=== PATIENT | female | born 1940 | race Caucasian/White ===

== ENCOUNTER → 2018-06-16 | Outpatient (CLI) | payer MEDICARE | LOC: M LRY 14:08 | DX: M19.011 Primary osteoarthritis, right shoulder (principal); M25.711 Osteophyte, right shoulder; M25.511 Pain in right shoulder | CPT/HCPCS: 73030; G0463 ==

== ENCOUNTER → 2019-06-28 | Outpatient (REF) | payer MEDICARE ==
[~2019-06-28] MED LIST: /ALEN70TA; ACET65TA; CALC500T49; COUM1TAB; COUM1TAB18; LISI10TA4; MEGA VITAMIN; PERC5TAB8; PERC7.5T8; PRAV80TA; aleve; coq10; glucosamine; metroprolol
== END ==
LOC: M LAB REF 17:22
PROVIDERS: ATTEND Internal Medicine Endocrinology, Diabetes & Metabolism
DX: E04.2 Nontoxic multinodular goiter (principal)

== ENCOUNTER → 2020-05-12 | Outpatient (CLI) | payer MEDICARE ==
[~2020-05-12] MED LIST changes: +ACET1TAB55 PO; +AROM25TA PO; +ASPI81TA85 PO; +CALC600T60 PO; +COQ-100C5 PO; +FISH1000 PO; +GLUCCAP4 PO; +LISI-538 PO; +METO50TA7 PO; +PRAV40TA2 PO
[2020-05-12 10:43] LABS: HEMATOCRIT 47.5 % (36.0-47.0); HEMOGLOBIN 15.4 g/dl (12.0-15.5); MEAN CORPUSCULAR HEMOGLOBIN 29.8 pg (27.0-33.0); MEAN CORPUSCULAR HGB CONC 32.4 g/dl (32.0-36.5); MEAN CORPUSCULAR VOLUME 91.9 fl (80.0-96.0); PLATELET COUNT, AUTOMATED 227 10^3/uL (150-450); RED BLOOD COUNT 5.17 10^6/uL (4.00-5.40)
[2020-05-12 11:03] LABS: INR 1.1; PROTHROMBIN TIME 13.9 SECONDS (11.8-14.0)
[2020-05-12 11:06] LABS: ERYTHROCYTE SEDIMENTATION RATE 7 mm/hr (0-30)
[2020-05-12 11:11] LABS: ALBUMIN 3.9 GM/DL (3.2-5.2); BILIRUBIN,TOTAL 0.9 MG/DL (0.2-1.0); CALCIUM LEVEL 9.2 MG/DL (8.8-10.2); CREATININE FOR GFR 1.08 MG/DL (0.55-1.30); POTASSIUM SERUM 4.4 MEQ/L (3.5-5.1); TOTAL PROTEIN 7.3 GM/DL (6.4-8.2)
--- NOTE | 2020-05-12 11:30 | REP ---
REASON: Preoperative evaluation. COMPARISON: 05/03/2010, which is the latest prior. There is mild cardiomegaly. There is a hiatal hernia. There is no change in the lung amezquita. No acute patchy parenchymal opacities or pleural effusions have developed. There is no significant change in appearance of the osseous structures. IMPRESSION: No significant change from the prior exam. There is no evidence of acute cardiopulmonary disease. Electronically Signed by Rio Burks DO 05/12/2020 03:04 P
--- NOTE | 2020-05-12 16:12 | ECGEPIP ---
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
== END ==
LOC: M LAB 08:45
PROVIDERS: ATTEND Orthopaedic Surgery
DX: Z01.818 Encounter for other preprocedural examination (principal); M17.11 Unilateral primary osteoarthritis, right knee; R00.1 Bradycardia, unspecified

== ENCOUNTER → 2020-05-21 | Outpatient (CLI) | payer MEDICARE ==
[~2020-05-21] MED LIST changes: +PERC5TAB12 PO
== END ==
LOC: M LABSMTC 10:33
PROVIDERS: ATTEND Anesthesiology
DX: Z01.818 Encounter for other preprocedural examination (principal); Z11.59 Encounter for screening for other viral diseases

== ENCOUNTER 2020-05-24 06:48 | Inpatient (IN) | payer MEDICARE ==
--- NOTE | 2020-05-22 18:27 | HPE ---
DATE OF ANTICIPATED ADMISSION: 05/24/2020 ATTENDING PHYSICIAN: Dr. Kimberly Damico CHIEF COMPLAINT: Right knee pain and stiffness. HISTORY: This is a pleasant 79-year-old female patient with progressively worsening right knee pain and stiffness that has failed to improve with conservative management. She has elected for surgical intervention for her continued symptoms. She has consented for a right total knee arthroplasty by Dr. Damico. ALLERGIES: MORPHINE. CURRENT MEDICATIONS: - aspirin 81 mg one by mouth daily - calcium 600 mg - vitamin D3 400 mg one by mouth twice a day - CoQ-10 200 mg one by mouth daily - exemestane 25 mg one by mouth daily - fish oil 500 mg one by mouth daily - glucosamine chondroitin one by mouth daily - lisinopril 20 mg one by mouth daily - metoprolol 50 mg one by mouth daily - multivitamin one by mouth daily - pravastatin sodium 40 mg one by mouth daily - Tylenol Arthritis 650 mg one by mouth daily PAST MEDICAL HISTORY: Hypertension, cardiovascular disease, hyperlipidemia, left breast cancer, osteopenia. PAST SURGICAL HISTORY: Knee arthroscopy, left breast mastectomy, left knee arthroscopy, left knee total knee replacement, bilateral cataract removal, thyroid biopsy. FAMILY HISTORY: Noncontributory. SOCIAL HISTORY: The patient does not smoke or use tobacco products. REVIEW OF SYSTEMS: Denies fever, chills, chest pain, shortness breath, nausea, vomiting, diarrhea. Denies any recent upper respiratory or urinary tract infection symptoms. Reports pain with weightbearing activities in the right knee. PHYSICAL EXAM: Vital signs: Height 5 feet 1/2 inch, weight 168.2, temperature 97.5, blood pressure 110/60, pulse 63, respirations 15. She is normocephalic, atraumatic. Neck is supple and nontender with no lymphadenopathy or jugular venous distention (JVD). S1, S2 auscultated with no murmurs, rubs or gallops. Lungs: Clear to auscultation bilaterally. Abdomen: Soft, nontender. Right lower extremity: Well perfused with intact range of motion. There are no breaks in the overlying skin. LABORATORY: White blood count 6, red blood count 5.17, hemoglobin 15.4, hematocrit 47.5, ESR 7, PT 13.9, INR 1.1, BUN 18, creatinine 1.08. EKG: Sinus bradycardia. Chest x-ray: No significant change or acute cardiopulmonary processes. Medical optimization by Dr. Taylor available for review today on chart. IMPRESSION: Symptomatic right knee degenerative changes. PLAN: Consented for a right total knee arthroplasty with Dr. Damico.
[~2020-05-24] VITALS: Ht 157.5 cm; Wt 77.1 kg
[2020-05-24] VITALS (7 sets, daily range): BP systolic 119–138; BP diastolic 65–78
[~2020-05-24 06:48] MED LIST changes: -ASPI81TA85 PO; +ASPI81TA86 PO; +LIDOCAINE 1% MDV 20ML VIAL SQ PRN; -LISI-538 PO; +LISI20TA33 PO; +MIDAZOLAM INJ 2MG/2ML VIAL (J2250 PER 1MG) IV SCH; -PERC5TAB12 PO; +fentaNYL 100 MCG/2 ML INJECTION (J3010) IV SCH
[2020-05-24] MEDS ORDERED: ceFAZolin SOD 2 GM in IV 1 EA IV ONE (07:00)
[2020-05-24] MEDS ORDERED: ACETAMINOPHEN 500 MG TAB PO ONE (07:00)
[2020-05-24] MEDS ORDERED: LR 1,000 ML IV ONE (07:00)
[2020-05-24] MEDS ORDERED: fentaNYL 100 MCG/2 ML INJECTION (J3010) As Ordered ONE ×2 (08:20→09:57)
[2020-05-24] MEDS ORDERED: MIDAZOLAM INJ 2MG/2ML VIAL (J2250 PER 1MG) As Ordered ONE ×2 (08:20→09:57)
[2020-05-24] MEDS ORDERED: TRANEXAMIC ACID 100 MG/ML 10ML VIAL As Ordered ONE ×2 (08:55→09:40)
[2020-05-24] MEDS ORDERED: BUPIVACAINE HCL 0.25% 10ML VIAL As Ordered ONE (08:55)
[2020-05-24] MEDS ORDERED: EPINEPHrine INJ 1 MG/ML 1ML AMP As Ordered ONE ×2 (08:56→09:40)
[2020-05-24] MEDS ORDERED: ceFAZolin 1GM VIAL (J0690 PER 500MG) As Ordered ONE (08:56)
[2020-05-24] MEDS ORDERED: BUPIVACAINE LIPOSOME/PF 1.3% 20ML VIAL (13.3MG/ML)(EXPAREL)(C9290 PER1MG) As Ordered ONE (08:56)
[2020-05-24] MEDS ORDERED: LIDOCAINE 2% 100MG/5ML SDV (FOR ANES.) As Ordered ONE (09:57)
[2020-05-24] MEDS ORDERED: ePHEDrine SULFATE 25 MG/5 ML(5MG/ML) SYRINGE As Ordered ONE (09:57)
[2020-05-24] MEDS ORDERED: BUPIVACAINE/DEXTROSE 0.75% 2 ML AMP As Ordered ONE (09:57)
[2020-05-24] MEDS ORDERED: propofoL 200 MG/20 ML VIAL As Ordered ONE (09:57)
[2020-05-24] MEDS ORDERED: LIDOCAINE 1% MDV 20ML VIAL ONE (11:10)
[2020-05-24] MEDS ORDERED: ROPIvacaine 0.5% 30ML INJECTION (J2795 PER 1MG) ONE (11:10)
[2020-05-24] MEDS ORDERED: dexameTHASONE 10MG/1ML VIAL PRES.FREE (J1100 PER 1MG) ONE (11:10)
[2020-05-24] MEDS ORDERED: fentaNYL 100 MCG/2 ML INJECTION (J3010) IV PRN (11:30)
[2020-05-24] MEDS ORDERED: PERCOCET 5MG/325MG TAB PO PRN (11:30)
[2020-05-24] MEDS ORDERED: ONDANSETRON 4MG/2ML VIAL IV PRN ×2 (11:30)
[2020-05-24] MEDS ORDERED: ACETAMINOPHEN TAB 650MG DOSE (2X325MG) PO PRN (11:30)
[2020-05-24] MEDS ORDERED: LR 1,000 ML IV SCH ×2 (11:30)
[2020-05-24] MEDS ORDERED: MORPHINE 2 MG/ML 1ML VIAL (J2270) IV PRN (11:30)
--- NOTE | 2020-05-24 11:48 | REP ---
Right knee: Two views. History: Postop placement. Findings: Portably obtained AP and lateral views of the right knee demonstrate right knee arthroplasty components in good position. Periarticular soft tissue emphysema is seen and anterior skin marti are noted. Impression: Right knee arthroplasty. Electronically Signed by Marco Harrell MD 05/24/2020 11:40 A
--- NOTE | 2020-05-24 16:15 | CR ---
DATE OF CONSULTATION: 05/24/2020 REASON FOR CONSULTATION: Medical management. CHIEF COMPLAINT: Right total knee arthroplasty. HISTORY OF PRESENT ILLNESS: An 79-year-old female with a history of hypertension, coronary artery disease (CAD), hyperlipidemia, left breast cancer, and osteopenia, status post right total knee arthroplasty due to persistent limitations of activities of daily living (ADLs) due to severe osteoarthritis with no postoperative complications. Hospitalist was asked to consult and manage chronic medical issues. Patient denies any fevers, chills, changes in weight, changes in appetite, nausea, vomiting, diarrhea, abdominal pain. Denies any chest pain, pressure, or tightness, shortness of breath, palpitations, lightheadedness, or dizziness. No dysuria, urgency, frequency. No bright red blood per rectum, melena, black, tarry stools, hematemesis. Denies polyuria or polyphagia, polydipsia. Denies upper or lower extremity weakness. Has no pain and currently no feeling in bilateral lower extremities due to anesthesia. Patient was given morning dose of metoprolol and was bradycardic, ventricular rate of 49 on the monitor in postanesthesia care unit (PACU), currently up to about 52 beats per minute. Patient is speaking without any difficulty. No respiratory distress. PAST MEDICAL HISTORY: 1. CAD. 2. Hyperlipidemia. 3. Hypertension. 4. Left breast cancer. 5. Osteopenia. PAST SURGICAL HISTORY: 1. Bilateral cataract removal. 2. Thyroid biopsy. 3. Knee arthroscopy. 4. Left breast mastectomy. 5. Left knee arthroscopy. ALLERGIES: MORPHINE. HOME MEDICATIONS: - aspirin 81 daily - Tylenol 650 daily - pravastatin 40 daily - calcium 600 daily - vitamin D3 at 400 twice a day - coenzyme Q 200 daily - pravastatin 40 daily - multivitamin one tablet daily - metoprolol 50 daily - lisinopril 20 daily - glucosamine one tablet daily - fish oil 500 daily - exemestane 25 mg daily SOCIAL HISTORY: Denies alcohol, cigarettes, or recreational drug use. Patient is retired. 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 Patient lives alone in one-story home and will have her son live with her over the weekend. FAMILY HISTORY: Father due to a bee sting. Mother , age 68, due to CAD, congestive heart failure (CHF), diabetes, legally blind. Patient has two brothers, one sister. REVIEW OF SYSTEMS: Per history of present illness (HPI). A 12-point system otherwise negative. PHYSICAL EXAMINATION: Temperature 98.3, pulse 50, respiratory rate 20, blood pressure 135/67, 98% on room air. GENERAL: Patient is awake, alert, oriented to person, place, and time. Anicteric. No jaundice. No use of respiratory accessory muscles. Pupils are round, reactive. Extraocular muscles are intact. Normocephalic, atraumatic. LUNGS: Clear to auscultation. No wheezes, rales, or rhonchi. HEART: S1, S2, sinus rhythm. ABDOMEN: Soft, nontender, nondistended. Obese abdomen. EXTREMITIES: Postoperative right total knee. Pulses noted. Skin pink, well perfused. ASSESSMENT AND PLAN: An 79-year-old female status post right total knee, history of hypertension, coronary artery disease (CAD), dyslipidemia. IMPRESSION: 1. Right total knee arthroplasty. 2. CAD. 3. Hypertension. 4. Dyslipidemia. 5. Obesity, body mass index (BMI) of 31. 6. Left breast cancer. 7. Osteopenia. PLAN: Resume all home medications. Postoperative management per orthopedic surgery. Activity, pain management, bowel regimen, and deep vein thrombosis (DVT) prophylaxis. MTDD
[2020-05-24] MEDS: PERCOCET 5MG/325MG TAB PO PRN (17:02)
[2020-05-24] MEDS: ceFAZolin SOD 2 GM in IV 1 EA IV SCH (17:03)
[2020-05-24] MEDS: ASPIRIN 81 MG ENTERIC TAB PO SCH (20:18)
[2020-05-24] MEDS ORDERED: PRAVASTATIN 20 MG TAB PO SCH (21:00)
[2020-05-25] MEDS: ceFAZolin SOD 2 GM in IV 1 EA IV SCH ×2 (00:20→08:10)
[2020-05-25] MEDS: PERCOCET 5MG/325MG TAB PO PRN ×2 (00:21→08:10)
[2020-05-25 02:00] VITALS: BP 116/65
[2020-05-25 06:00] VITALS: BP 115/64
[2020-05-25] MEDS ORDERED: PERC5TAB12 PO (06:24)
[2020-05-25] MEDS ORDERED: ASPI81TA86 PO (06:27)
[2020-05-25 06:34] LABS: HEMATOCRIT 38.8 % (36.0-47.0); HEMOGLOBIN 12.7 g/dl (12.0-15.5); MEAN CORPUSCULAR HGB CONC 32.7 g/dl (32.0-36.5); MEAN CORPUSCULAR VOLUME 91.5 fl (80.0-96.0); PLATELET COUNT, AUTOMATED 193 10^3/uL (150-450); RED BLOOD COUNT 4.24 10^6/uL (4.00-5.40); WHITE BLOOD COUNT 15.8 10^3/uL (4.0-10.0)
[2020-05-25 07:07] LABS: ALBUMIN 3.1 GM/DL (3.2-5.2); CALCIUM LEVEL 8.6 MG/DL (8.8-10.2); CREATININE FOR GFR 1.1 MG/DL (0.55-1.30); GLOMERULAR FILTRATION RATE 50.9 (>32); POTASSIUM SERUM 4.6 MEQ/L (3.5-5.1)
[2020-05-25] MEDS: ASPIRIN 81 MG ENTERIC TAB PO SCH (08:09)
[2020-05-25] MEDS ORDERED: MOM 30ML SUSPENSION UDC PO SCH (09:00)
[2020-05-25] MEDS ORDERED: MIRALAX *UNIT DOSE* 17GM PACKET PO SCH (09:00)
[2020-05-25] MEDS ORDERED: EXEMESTANE 25 MG PO SCH (09:00)
--- NOTE | 2020-05-25 16:27 | IPN ---
DATE: 05/25/2020 The patient says that she has no pain when she is not moving but she does feel some achiness where the incision site was, tolerated with 3/10 pain after pain medications are given. The patient is anxious to go home. Orthopedic surgery had told her she can go after she works with physical therapy and is cleared. No other complaints aside from not being able to sleep last night due to noise. No chest pain, pressure or tightness, shortness of breath, dysuria, urgency of frequency, fever, chills. Denies any generalized weakness, upper or lower extremity paraesthesias. Temperature 97.7, pulse 65, respiratory rate 18, blood pressure 115/64, 94% on room air. Generally, patient is awake, alert, oriented times three, answering questions appropriately. Lungs are clear to auscultation. No wheezing, rales or rhonchi. Heart: S1, S2, sinus rhythm. Abdomen is soft, nontender, nondistended. Obese abdomen. Extremities: Postoperative right knee. No pitting edema, cyanosis. Skin color is pink, warm, well perfused. LABORATORY DATA: White count 15.8, hemoglobin 12, hematocrit 38, platelet count 193. Sodium 136, potassium 4.6, chloride 105, bicarbonate 27, BUN 18, creatinine 1.1, glucose 129. ASSESSMENT AND PLAN: 79-year-old female with CAD, hypertension, hyperlipidemia, left breast cancer and osteopenia with right total knee arthroplasty post-op day #1. IMPRESSION: 1. Right total knee arthroplasty post-op day #1. Post-op management per orthopedic surgery pain medications, bowel regimen and deep venous thrombosis (DVT) prophylaxis. 2. Hypertension, controlled on lisinopril and metoprolol. 3. History of CAD. On aspirin, metoprolol, and lisinopril. 4. Hyperlipidemia. On pravastatin. DISPOSITION: Per orthopedic surgery, cleared for discharge home if cleared by physical therapy. [facility]
[2020-05-25] MEDS ORDERED: METOPROLOL TART 50 MG TAB PO SCH (21:00)
--- NOTE | 2020-05-28 13:38 | RO ---
DATE OF PROCEDURE: 05/24/2020 PREPROCEDURE DIAGNOSIS: Right knee degenerative arthritis. POSTPROCEDURE DIAGNOSIS: Right knee degenerative arthritis. PROCEDURE: Right total knee arthroplasty using a size 4 cruciate-retaining Attune cemented femoral component and a size 4 tibial tray with an 8 mm polyethylene rotating platform insert with a 35 mm polyethylene button. All components were cemented. Prosthesis was made by [employer]. SURGEON: Kimberly Damico MD HAND SCUDDER: Mr. Uri Cat ANESTHESIA: Spinal with right femoral nerve block. COMPLICATIONS: None. SPECIMENS: Joint surface. DESCRIPTION OF PROCEDURE: Antibiotics were given intravenously preoperatively. Successful right femoral nerve block and then a spinal anesthetic was induced. Tourniquet was placed on the right upper thigh and not inflated. Right lower extremity was carefully prepped and draped in the usual sterile fashion and then elevated, and after appropriate time-out, tourniquet was inflated, then a longitudinal incision was made for a medial parapatellar approach to the knee. Bovie cautery was used to coagulate crossing vessels. Medial parapatellar arthrotomy performed. Subperiosteal dissection around the proximal, medial and lateral tibial plateau was performed. The patella was everted, the knee flexed, anterior cruciate ligament (ACL) debrided. Drill placed down the center of the femoral canal followed by the intramedullary matthew and the distal femoral cutting jig set at 5-degree valgus cut and 90 mm resection level for a right knee. Distal femoral cut was performed, anterior-posterior sizing jig measured for a size 4. 3 degrees of external rotation were dialed in, the 4-in-1 block applied. Anterior, posterior, chamfer cut performed. Sulcus cut jig was placed, and the sulcus osteotomy performed. We exposed the proximal tibia, used the extramedullary alignment jig to estimate being parallel to the mechanical axis, referencing off the medial tibial condyle at 4 mm resection level. We secured the block. Secondary check with the extramedullary matthew confirmed we appeared to be parallel. Proximal tibial osteotomy was performed, then the lamina laser engraver was placed medially, and we performed a completion lateral meniscectomy and debridement of the posterolateral osteophytes. We then placed the lamina laser engraver laterally, and performed a completion medial meniscectomy and debridement of the posteromedial osteophytes. Spacer block at 8 mm fit the best with excellent symmetry to varus, valgus stress testing both in flexion and in extension. We then exposed the proximal tibia, sized for a #4 tibial tray, which was pinned into position, followed by the reamer and broach, followed by the trial polyethylene, and then the trial femoral component was applied, brought the knee into extension, everted the patella, performed a patellar osteotomy, sized for a 35 button, lug holes drilled, and then the trial placed and patellofemoral tracking was anatomic. At this point, then, we drilled the lug holes for the femur, removed all the trial components, and placed Exparel in the subperiosteal tissues around the distal femur and the proximal tibia. Then, I copiously pulsatile lavage irrigated out the knee joint as I did several times throughout the surgery but at this point, then, also prepared the bony surfaces for cementing while my paralegal assistant, Mr. Uri Cat, mixed the cement on the back table. He was also critical to the success of this difficult procedure by helping to apply appropriate soft tissue retraction, manipulate the knee, prepare the patient, close the wound amongst many other tasks to allow me to perform the operation smoothly, efficiently and safety. Once all the bony surfaces were thoroughly dried, we cemented the tibial tray, removed excess cement, placed the polyethylene, then cemented the femoral component, removed excess cement, brought the knee into extension, cemented the patellar button, removed excellent cement and held it with a clamp with the knee in full extension until the cement hardened. As we were waiting, we copiously pulsatile lavage irrigated out the knee again and then placed tranexamic acid into the knee and then closed the apex of the arthrotomy with two #1 PDS sutures, medial parapatellar area was closed with a #1 PDS suture, then we released the tourniquet, then closed the deep subdermal tissues with interrupted #2-0 PDS suture, the skin was closed with marti covered by an Optifoam and a dry sterile bulky dressing. She was then transferred to the recovery room in stable condition. There were no intraoperative complications.
--- NOTE | 2020-06-01 12:31 | DSES ---
DATE OF ADMISSION: 05/24/2020 DATE OF DISCHARGE: 05/25/2020 ATTENDING PHYSICIAN: Dr. Jose Damico ADMISSION DIAGNOSIS: Right knee osteoarthritis. PROCEDURE PERFORMED: Right knee total arthroplasty. DISCHARGE DIAGNOSIS: Right knee symptomatic osteoarthritis, generative changes status post right knee total arthroplasty. OTHER DIAGNOSES: Hypertension. Cardiovascular disease. Hyperlipidemia. History of left breast cancer. Osteopenia. HISTORY: This is a pleasant 79-year-old female who was admitted on the day of surgery and underwent an elective right knee total arthroplasty with Dr. Damico which was without complication. Hospital course was unremarkable. The patient was up with physical therapy per their protocol on the day of surgery. Pain was controlled on the day of discharge. She will resume her preoperative medications and diet along with oral pain medications for pain control. Discharge instructions to include but not limited to wound monitoring and activity limitations were provided to the patient. She will wear thromboembolic deterrent stockings (TEDS) stockings and use Xarelto for deep venous thrombosis (DVT) prophylaxis per protocol. She will followup in our office in 10-14 days for surgical followup. Please see medical record for further details
== END 2020-05-25 12:57 | disposition home or self-care (01) | DRG 470 ==
LOC: M OR 06:48 → M MS5PR 13:15
PROVIDERS: ADMIT Orthopaedic Surgery; ATTEND Orthopaedic Surgery
PROC: 0SRC0J9 Replacement of Right Knee Joint with Synthetic Substitute, Cemented, Open Approach (ICD-10-PCS; principal; 2020-05-24 09:45)
DX: M17.11 Unilateral primary osteoarthritis, right knee (principal); Z11.59 Encounter for screening for other viral diseases; I10 Essential (primary) hypertension; E78.5 Hyperlipidemia, unspecified; Z79.82 Long term (current) use of aspirin; Z79.899 Other long term (current) drug therapy; E66.9 Obesity, unspecified; Z68.31 Body mass index [BMI] 31.0-31.9, adult; Z96.652 Presence of left artificial knee joint; I25.10 Atherosclerotic heart disease of native coronary artery without angina pectoris